=== PATIENT | female | born 1940 | race Caucasian/White ===

== ENCOUNTER 2016-12-17 06:15 | Outpatient (CLI) | payer MEDICARE, BC ==
[2016-12-17 06:50] LABS: BASOPHILS 0 % (0-2); EOSINOPHILS 0.6 % (0-7); HEMATOCRIT 41.6 % (36.0-48.0); HEMOGLOBIN 12.8 g/dL (12-16); IMMATURE GRANULOCYTES 1.9 % (0-5); LYMPHOCYTES 44.8 % (15-50); MCH 26.6 pg (26.0-34.0); MCHC 30.8 g/dL (31.0-37.0); MCV 86.5 fL (80.0-100.0); MEAN PLATELET VOLUME 10.1 fL (7.4-10.4); MONOCYTES 9.1 % (2-11); NEUTROPHILS 43.6 % (40-80); PLATELET COUNT 170 10x3/uL (130-400); RBC 4.81 10x6/uL (4.00-5.40); RDW 16.1 % (11.5-14.5); WBC 3.2 10x3/uL (4.8-10.8)
[2016-12-17 07:00] LABS: APTT 29.7 SECONDS (22.8-39.4); INR 0.94 (0.85-1.17); PROTIME 12.4 SECONDS (11.6-15.0)
[2016-12-17] MEDS ORDERED: ALENDRONATE SOD70 MG PO (07:03)
[2016-12-17] MEDS ORDERED: SYNTHROID75 MCG PO (07:04)
[2016-12-17] MEDS ORDERED: VITAMIN D31000 UNIT PO (07:05)
[2016-12-17] MEDS ORDERED: MAGNESIUM GLUC500 M1 PO (07:06)
[2016-12-17] MEDS ORDERED: CALCIUM 500 + D1 TAB PO (07:06)
[2016-12-17] MEDS ORDERED: ALEVE220 MG PO (07:07)
[2016-12-17 07:10] LABS: ANION GAP 13.8 mmol/L (8-16); CALCIUM 9.1 mg/dL (8.5-10.1); CARBON DIOXIDE 26.3 mmol/L (21.0-32.0); POTASSIUM - SERUM 4.1 mmol/L (3.5-5.1)
[2016-12-17 07:18] VITALS: BP 113/64; BMI 25.7
--- NOTE | 2016-12-17 10:04 | NUR ---
0920--ALL VITAL SIGNS CHARTED ON POST PROCEDURE VITAL SIGN SHEET ON CHART. CAROL CROW
--- NOTE | 2016-12-17 17:21 | NUR ---
1300--IV DC'D, PT UP TO DRESS. CAROL CROW 1312--DISCHARGE INSTRUCTIONS GIVEN, PT VERBALIZES UNDERSTANDING. PT OFF UNIT VIA WC. CAROL CROW
== END 2016-12-17 13:15 | disposition home or self-care (01) ==
LOC: D.RAD 06:15
PROVIDERS: General Practice
DX: N28.89 Other specified disorders of kidney and ureter (principal); Z85.3 Personal history of malignant neoplasm of breast; Z01.812 Encounter for preprocedural laboratory examination

== ENCOUNTER → 2017-10-12 09:14 | Outpatient (CLI) | payer MEDICARE, BC ==
[~2017-10-12 09:14] MED LIST: ALENDRONATE SOD70 MG PO; ALEVE220 MG PO; CALCIUM 500 + D1 TAB PO; MAGNESIUM GLUC500 M1 PO; SYNTHROID75 MCG PO; VITAMIN D31000 UNIT PO
[2017-10-12 09:36] LABS: HEMATOCRIT 28.3 % (36.0-48.0); MCH 27.5 pg (26.0-34.0); MCHC 28.3 g/dL (31.0-37.0); MCV 97.3 fL (80.0-100.0); RBC 2.91 10x6/uL (4.00-5.40); RDW 22.6 % (11.5-14.5)
[2017-10-12 09:44] LABS: PLATELET COUNT 85 10x3/uL (130-400)
[2017-10-12 10:05] LABS: WBC 1.4 10x3/uL (4.8-10.8)
[2017-10-12 10:06] LABS: ALBUMIN 2.2 g/dL (3.4-5.0); ANION GAP 9.8 mmol/L (8-16); BILIRUBIN - TOTAL 0.67 mg/dL (0.2-1.3); CALCIUM 8.9 mg/dL (8.5-10.1); CARBON DIOXIDE 28.5 mmol/L (21.0-32.0); CREATININE - SERUM 1.2 mg/dL (0.6-1.3); POTASSIUM - SERUM 4.3 mmol/L (3.5-5.1); PROTEIN - SERUM 6.8 g/dL (6.4-8.2)
[2017-10-12 10:21] LABS: ANISOCYTOSIS OCC; EOSINOPHILS 4 % (0-7); LYMPHOCYTES 51 % (15-50); MONOCYTES 3 % (2-11); NEUTROPHILS 40 % (40-80); PLATELET ESTIMATE DECREASED
[2017-10-12 10:22] LABS: HYPOCHROMASIA OCC
== END | disposition home or self-care (01) ==
LOC: D.LAB 09:14
DX: C64.2 Malignant neoplasm of left kidney, except renal pelvis (principal)

== ENCOUNTER → 2017-10-19 09:00 | Outpatient (CLI) | payer MEDICARE, BC ==
[2017-10-19 09:39] LABS: ANION GAP 9.8 mmol/L (8-16); CARBON DIOXIDE 27.8 mmol/L (21.0-32.0); CREATININE - SERUM 1.3 mg/dL (0.6-1.3); POTASSIUM - SERUM 3.6 mmol/L (3.5-5.1)
[2017-10-19 09:45] LABS: BASOPHILS 1.7 % (0-2); EOSINOPHILS 0.8 % (0-7); HEMATOCRIT 26.2 % (36.0-48.0); IMMATURE GRANULOCYTES 0.8 % (0-5); LYMPHOCYTES 53.8 % (15-50); MCH 27.8 pg (26.0-34.0); MCHC 27.9 g/dL (31.0-37.0); MCV 99.6 fL (80.0-100.0); MEAN PLATELET VOLUME 9.2 fL (7.4-10.4); MONOCYTES 16.8 % (2-11); NEUTROPHILS 26.1 % (40-80); RBC 2.63 10x6/uL (4.00-5.40); RDW 22.4 % (11.5-14.5)
[2017-10-19 09:47] LABS: PLATELET COUNT 120 10x3/uL (130-400)
[2017-10-19 12:02] LABS: WBC 1.2 10x3/uL (4.8-10.8)
[2017-10-19 12:03] LABS: HEMOGLOBIN 7.3 g/dL (12-16)
== END | disposition home or self-care (01) ==
LOC: D.LAB 09:00
DX: C64.2 Malignant neoplasm of left kidney, except renal pelvis (principal)

== ENCOUNTER → 2017-10-27 12:25 | Outpatient (CLI) | payer MEDICARE, BC ==
[2017-10-27 12:47] LABS: BASOPHILS 0.4 % (0-2); EOSINOPHILS 0.8 % (0-7); HEMATOCRIT 32.9 % (36.0-48.0); HEMOGLOBIN 9.4 g/dL (12-16); IMMATURE GRANULOCYTES 2.1 % (0-5); LYMPHOCYTES 50.2 % (15-50); MCH 27.7 pg (26.0-34.0); MCHC 28.6 g/dL (31.0-37.0); MCV 97.1 fL (80.0-100.0); MEAN PLATELET VOLUME 9.7 fL (7.4-10.4); MONOCYTES 15.8 % (2-11); NEUTROPHILS 30.7 % (40-80); PLATELET COUNT 120 10x3/uL (130-400); RBC 3.39 10x6/uL (4.00-5.40); RDW 19.6 % (11.5-14.5); WBC 2.4 10x3/uL (4.8-10.8)
== END | disposition home or self-care (01) ==
LOC: D.LAB 12:25
DX: D61.818 Other pancytopenia (principal); D53.9 Nutritional anemia, unspecified